=== PATIENT | female | born 1960 | race American Indian/Alaskan Native ===

== ENCOUNTER 2020-06-25 15:48 | Outpatient (CLI) | payer OTHER ==
--- NOTE | 2020-06-25 16:30 | XRay Report ---
LUMBAR SPINE 3 VIEWS INDICATION / CLINICAL INFORMATION: DISABILITY. COMPARISON: None available. FINDINGS: Mild diffuse degenerative change. No other significant skeletal abnormality. Alignment is normal. Signer Name: Mikey Esteban MD FACR Signed: 06/25/2020 4:26 PM Workstation Name: [id number]
--- NOTE | 2020-06-25 16:30 | XRay Report ---
LEFT KNEE 3 VIEWS INDICATION / CLINICAL INFORMATION: DISABILITY. COMPARISON: None available. FINDINGS: No significant skeletal abnormality Signer Name: Mikey Esteban MD FACR Signed: 06/25/2020 4:26 PM Workstation Name: [id number]
== END 2020-06-25 15:49 | disposition home or self-care (01) ==
LOC: XRAY 15:48
PROVIDERS: ATTEND Internal Medicine
DX: M47.816 Spondylosis without myelopathy or radiculopathy, lumbar region (principal); I10 Essential (primary) hypertension; M25.562 Pain in left knee
CPT/HCPCS: 72100